=== PATIENT | male | born 1950 | race Caucasian/White ===

== ENCOUNTER 2019-03-13 00:13 | Emergency (ER) | payer MEDICARE, OTHER ==
[~2019-03-13] VITALS: Ht 172.7 cm; Wt 74.4 kg
--- NOTE | 2019-03-13 00:24 | NUR ---
PT BIBRA. C/O "MAY HAVE ACCIDENTALLY TAKEN TOO MUCH TRAZODONE. +SYNCOPE, BP 90/61" -SOB AOX4. VSS. NAD NOTED. PT REPORTS SLIGHT DIZZINESS. RESP EVEN AND UNLABORED. PT ON MONITOR IN BED 3. WILL CONTINUE TO MONITOR.
--- NOTE | 2019-03-13 00:50 | NUR ---
TECH AT BEDSIDE FOR EKG
--- NOTE | 2019-03-13 00:53 | NUR ---
PHLEB AT BEDSIDE FOR BLOOD DRAW
[2019-03-13] MEDS ORDERED: IV NS 0.9% 1,000 ML BAG IV ONE (01:00)
[2019-03-13 01:01] LABS: BASOPHILS # (AUTO) 0.1 /CMM (0.0-0.2); BASOPHILS % (AUTO) 1.1 % (0.0-2.0); HEMATOCRIT 41 % (39-51); HEMOGLOBIN 13.8 g/dL (13.5-17.5); LYMPHOCYTES # (AUTO) 0.8 /CMM (0.8-4.8); MEAN CORPUSCULAR HGB CONC 34 g/dl (31.0-36.0); MEAN CORPUSCULAR VOLUME 101 fL (80-96); MONOCYTES # (AUTO) 0.4 /CMM (0.1-1.30); MONOCYTES % (AUTO) 4.9 % (2.0-12.0); NEUTROPHILS # (AUTO) 6.3 /CMM (1.8-8.9); PLATELET COUNT (AUTO) 234 /CMM (150-450); RED BLOOD CELL COUNT(AUTO) 4.07 MIL/uL (4.5-6.0); WHITE BLOOD COUNT (AUTO) 7.7 K/uL (4.3-11.0)
--- NOTE | 2019-03-13 01:09 | NUR ---
RADIOLOGY AT BEDSIDE FOR XRAY
[2019-03-13 01:15] LABS: CALCIUM, SERUM 8.4 mg/dL (8.5-10.1); CREATININE 0.9 mg/dL (0.6-1.3); POTASSIUM 3.9 mmol/L (3.5-5.1)
--- NOTE | 2019-03-13 01:23 | NUR ---
Patient is resting comfortably in bed. Easily aroused. VSS. Family at bedside.
--- NOTE | 2019-03-13 03:35 | NUR ---
Patient discharged to home in stable condition. Written and verbal after care instructions given. Patient verbalizes understanding of instruction. IV removed. Catheter intact and site benign. Pressure and 4x4 applied to site. No bleeding noted. PT ambulatory with a steady gait.
[2019-03-13 03:36] VITALS: BP 126/64
== END 2019-03-13 03:36 | disposition home or self-care (01) ==
LOC: ER 00:18
DX: S01.81XA Laceration without foreign body of other part of head, initial encounter (principal); R55 Syncope and collapse; F41.9 Anxiety disorder, unspecified; G47.00 Insomnia, unspecified; Z88.0 Allergy status to penicillin; X58.XXXA Exposure to other specified factors, initial encounter; Y93.89 Activity, other specified; Y92.89 Other specified places as the place of occurrence of the external cause; Y99.8 Other external cause status
CPT/HCPCS: 12011; 36415; 71045; 80048; 80305; 84484 ×2; 85025; 93005 ×2; 96360; 99284; J7030

== ENCOUNTER 2019-08-18 12:31 | Inpatient (IN) | payer MEDICARE, OTHER ==
[~2019-08-18] VITALS: Ht 177.8 cm; Wt 81.6 kg
--- NOTE | 2019-08-18 12:38 | NUR ---
CAME IN FOR SUDDEN ONSET CHEST PAIN 30 MINS AGO, TO ER BED 1, HOOKED TO SORTING LIVESTOCK WORKER, NORMAL SINUS RHYTHM ON MONITOR, CHANGED TO HOSP GOWN, WARM BLANKET PROVIDED. PATIENT AAO x 4, BREATHING EVEN AND UNLABORED. AWAITING MD FORTE.
--- NOTE | 2019-08-18 12:39 | NUR ---
PATIENT DENIES CHEST PAIN UPON ARRIVAL IN ED.
--- NOTE | 2019-08-18 12:55 | NUR ---
DR RESTREPO AT BEDSIDE
[2019-08-18 12:56] LABS: BASOPHILS % (AUTO) 0.2 % (0.0-2.0); EOSINOPHILS % (AUTO) 1.2 % (0.0-6.0); HEMATOCRIT 45 % (39-51); HEMOGLOBIN 15.5 g/dL (13.5-17.5); LYMPHOCYTES # (AUTO) 1.1 /CMM (0.8-4.8); MEAN CORPUSCULAR HGB CONC 34 g/dl (31.0-36.0); MEAN CORPUSCULAR VOLUME 98 fL (80-96); MONOCYTES # (AUTO) 0.3 /CMM (0.1-1.30); MONOCYTES % (AUTO) 5.8 % (2.0-12.0); NEUTROPHILS # (AUTO) 3.2 /CMM (1.8-8.9); NEUTROPHILS % (AUTO) 68.8 % (43.0-81.0); PLATELET COUNT (AUTO) 229 /CMM (150-450); WHITE BLOOD COUNT (AUTO) 4.6 K/uL (4.3-11.0)
[2019-08-18 13:10] LABS: BILIRUBIN,DIRECT 0.2 mg/dL (0.0-0.2); CALCIUM, SERUM 9.1 mg/dL (8.5-10.1); TOTAL PROTEIN, SERUM 7.2 g/dL (6.4-8.2)
[2019-08-18] MEDS ORDERED: SUMA100T16 PO (13:34)
[2019-08-18] MEDS ORDERED: ALPR1TAB7 PO (13:34)
[2019-08-18] MEDS ORDERED: Z GUARD REMEDY 2 OZ OINT TP PRN (14:00)
[2019-08-18] MEDS ORDERED: MAG HYDROX/AL HYDROX/SIMETH 30 ML UDC PO PRN (14:00)
[2019-08-18] MEDS ORDERED: HYDROCODONE/APAP 5/325MG 1 EACH TABLET PO PRN (14:00)
[2019-08-18] MEDS ORDERED: ACETAMINOPHEN 325 MG TABLET PO PRN (14:00)
[2019-08-18] MEDS ORDERED: MAGNESIUM HYDROXIDE 30 ML UDC PO PRN (14:00)
[2019-08-18] MEDS ORDERED: ONDANSETRON HCL/PF 4 MG/2 ML VIAL IVP PRN (14:00)
[2019-08-18] MEDS ORDERED: NITROGLYCERIN 0.4 MG/TAB BOTTLE SL PRN (14:00)
[2019-08-18] MEDS ORDERED: MORPHINE SULFATE INJ 2 MG/ML DISP.SYRIN IV PRN (14:00)
--- NOTE | 2019-08-18 14:21 | NUR ---
REPORT GIVEN TO RUFINO LOPEZ OF TELE UNIT
--- NOTE | 2019-08-18 15:00 | NUR ---
MS RN NOTE ADMITTED PATIENT TO UNIT, ALERT AND ORIENTED X4. DENIES ANY C/O CHEST PAIN AT THIS TIME. DENIES ANY OTHER C/O PAIN NOR DISCOMFORT AT THIS TIME. ON TELEMONITORING SR: 65. ORIENTED PATIENT TO ROOM, UNIT AND CALL LIGHT. ALL BELONGINGS ACCOUNTED FOR. BED IN LOWEST POSITION, LOCKED. BED ALARM ON. CALL LIGHT WITHIN REACH.
[2019-08-18] MEDS: IV NS 0.9% 1,000 ML IV PRN (18:06)
--- NOTE | 2019-08-18 18:58 | NUR ---
MS RN NOTE PATIENT RESTING COMFORTABLY IN BED. DENIES ANY C/O CHEST PAIN AT THIS TIME. DENIES ANY OTHER C/O PAIN NOR DISCOMFORT AT THIS TIME. LEFT AC # 18 INTACT AND PATENT INFUSING NS AT 75ML/HR HARRISON WELL. ALL BELONGINGS ACCOUNTED FOR. BED IN LOWEST POSITION, LOCKED. BED ALARM ON. CALL LIGHT WITHIN REACH. IN NO APPARENT DISTRESS.
--- NOTE | 2019-08-18 19:00 | NUR ---
sight effects specialist opening notes Received Pt from morning nurse. Pt is sitting in bed comfortably watching TV. Pt is alert and orientedX4. Respiration is normal in room air. No SOB. No S/S of distress noted. Pt denies any pain or discomfort at this time. Tele monitor showed SR Hr at 70 bpm. LAC# 18 is clean, intact, patent and infusing well NS @ 75 ml/hr. Safety precautions is maintained. Bed at low position, brakes locked, side railsupX2 and call light is within reach. Will continue to monitor.
[2019-08-18 19:36] VITALS: BP 132/81
[2019-08-18 20:00] VITALS: BP 132/81
--- NOTE | 2019-08-18 20:11 | NUR ---
occupational safety and health manager notes Received a phone call from thomas Hamm regarding Pt's troponin is 1.296.
--- NOTE | 2019-08-18 20:19 | NUR ---
appeals writer notes Called Dr. Arnold regarding Pt's lab troponin 1.296. Awaiting for orders.
--- NOTE | 2019-08-18 20:27 | NUR ---
special forces senior sergeant notes Received a phone call from Dr. Arnold. Informed and notified MD regarding Pt's troponin 1.296. VS is stable. Tele monitor showed SR. Informed MD Pt has aspirin 81 mg ordered. MD ordered to follow up with another troponin Q 6hr. Order carried out.
[2019-08-18] MEDS ORDERED: TEMAZEPAM 15 MG CAPSULE PO PRN (22:00)
[2019-08-18 23:52] VITALS: BP 123/74
[2019-08-19] VITALS (40 sets, daily range): BP systolic 120–159; BP diastolic 48–112
--- NOTE | 2019-08-19 00:15 | NUR ---
industrial illuminating engineer notes Received critical lab from lab regarding Pt's troponin 1 is 1.509. Informed and notified Dr. Arnold regarding critical lab troponin 1. Informed and notified Pt denies any pain or discomfort at this time, Pt's VS is stable and Tele monitor showed SR 75bpm. Informed and notified MD Pt has aspirin 81 mg scheduled tomorrow. MD ordered lovenox 40 mg and aspirin 81 mg now and F/U with Troponin 1 in 6 hrs. Orders carried out. Will continue to monitor.
[2019-08-19] MEDS ORDERED: ENOXAPARIN SODIUM 40 MG/0.4 ML DISP.SYRIN SQ SCH ×2 (00:46→09:00)
[2019-08-19] MEDS ORDERED: ASPIRIN 81 MG TAB.CHEW PO ONE (01:00)
[2019-08-19] MEDS: IV NS 0.9% 1,000 ML IV PRN ×2 (04:48→21:29)
--- NOTE | 2019-08-19 06:50 | NUR ---
assembly detailer closing notes Pt is resting in bed comfortably. Pt is alert and orientedX4. Respiration is normal in room air. No SOB. No S/S of distress noted. Pt denies any pain or discomfort at this time. VS is stable. Afebrile. Tele monitor showed SR Hr at 75 bpm. LAC# 18 is clean, intact, patent and infusing well NS @ 75 ml/hr. Kept Pt clean, dry and comfortable. Safety precautions is maintained. Bed at low position, brakes locked, side railsupX2 and call light is within reach. Will endorse to morning nurse for KODAK.
[2019-08-19 07:18] LABS: BASOPHILS % (AUTO) 0.2 % (0.0-2.0); EOSINOPHILS % (AUTO) 1.1 % (0.0-6.0); HEMATOCRIT 42 % (39-51); HEMOGLOBIN 14.1 g/dL (13.5-17.5); LYMPHOCYTES # (AUTO) 1.2 /CMM (0.8-4.8); LYMPHOCYTES % (AUTO) 24.6 % (20.0-44.0); MEAN CORPUSCULAR HGB CONC 34 g/dl (31.0-36.0); MEAN CORPUSCULAR VOLUME 99 fL (80-96); MONOCYTES # (AUTO) 0.4 /CMM (0.1-1.30); MONOCYTES % (AUTO) 7.3 % (2.0-12.0); NEUTROPHILS # (AUTO) 3.4 /CMM (1.8-8.9); NEUTROPHILS % (AUTO) 66.8 % (43.0-81.0); PLATELET COUNT (AUTO) 205 /CMM (150-450); RED BLOOD CELL COUNT(AUTO) 4.22 MIL/uL (4.5-6.0); WHITE BLOOD COUNT (AUTO) 5.1 K/uL (4.3-11.0)
[2019-08-19 07:31] LABS: CALCIUM, SERUM 8.6 mg/dL (8.5-10.1); CREATININE 0.8 mg/dL (0.6-1.3); MAGNESIUM 2.5 mg/dL (1.8-2.4); POTASSIUM 3.8 mmol/L (3.5-5.1)
[2019-08-19 07:43] LABS: THYROID STIMULATING HORMONE 2.376 uIU/mL (0.358-3.74)
[2019-08-19] MEDS ORDERED: HEPARIN SODIUM, PORCINE 5000 UNITS/1 ML VIAL IV ONE (08:30)
[2019-08-19] MEDS ORDERED: IODIXANOL 150 ML IV ONE ×2 (08:58→13:46)
[2019-08-19] MEDS: ATORVASTATIN 40 MG TABLET PO SCH (09:00)
[2019-08-19] MEDS: ASPIRIN 81 MG TAB.CHEW PO SCH (09:00)
[2019-08-19] MEDS ORDERED: ENOXAPARIN SODIUM 80 MG/0.8 ML DISP.SYRIN SQ SCH (09:00)
[2019-08-19] MEDS: CARVEDILOL 3.125 MG TABLET PO SCH ×2 (09:00→21:13)
[2019-08-19] MEDS ORDERED: VERAPAMIL HCL IV 5 MG/2 ML VIAL ONE (11:27)
[2019-08-19] MEDS ORDERED: MIDAZOLAM HCL 2 MG/2ML VIAL ONE (11:27)
[2019-08-19] MEDS ORDERED: HEPARIN SODIUM, PORCINE 1,000 UNIT/ML VIAL ONE (11:28)
[2019-08-19] MEDS ORDERED: NITROGLYCERIN ICAR 1,000 MCG/10 ML VIAL ICAR ONE (11:28)
[2019-08-19] MEDS ORDERED: FENTANYL PF 100MCG/2ML AMPUL ONE (11:32)
--- NOTE | 2019-08-19 11:40 | NUR ---
METAL FURNITURE REPAIRER NOTE: PATIENT OFF UNIT. PATIENT WAS TAKEN TO THE HEAVY DUTY PRESS OPERATOR AT 1140.
[2019-08-19] MEDS ORDERED: IV SET PRIMARY PUMP SET 1 EA INFUS.SET MC ONE (11:46)
[2019-08-19] MEDS ORDERED: IV NS 0.9% 1,000 ML ONE (11:46)
[2019-08-19] MEDS ORDERED: LIDOCAINE HCL/PF 1% 30 ML SDV ONE (12:21)
[2019-08-19] MEDS ORDERED: IODIXANOL 320MG/ML 50 ML IV ONE (13:21)
[2019-08-19] MEDS ORDERED: TICAGRELOR 90 MG TABLET PO ONE (13:21)
[2019-08-19] MEDS ORDERED: BIVALIRUDIN 250 MG/VIAL IV ONE (13:21)
[2019-08-19] MEDS ORDERED: ASPIRIN 325 MG TABLET ONE (13:21)
--- NOTE | 2019-08-19 14:32 | NUR ---
SITE ACQUISITION SPECIALIST NOTE: PATIENT TRANSFERRED TO ICU AFTER CATHLAB. GAVE REPORT TO GEORGINA.
--- NOTE | 2019-08-19 14:55 | NUR ---
ICU/RN PT IS TRANSFERRED FROM AWNING MAKER S/P ANGIOGRAM.WITH 1 STENT PLACEMENT -OM. AWAKE,ALERT.NO PAIN REPORTED AT THIS TIME.RIGHT RADIAL TR BEND.RIGHT WRIST IS SWOLLEN WITH HEMATOMA.LEFT AC PERIFERAL IV WITH 100 ML/HR FOR THE NEXT 5 HRS.AFEBRILE. SINUS RHYTHM ON MONITOR. CONTINUE MONITORING.
[2019-08-19] MEDS ORDERED: LORAZEPAM 1 MG TABLET PO PRN (15:00)
[2019-08-19] MEDS ORDERED: SUMATRIPTAN SUCCINATE 100 MG TABLET PO PRN (15:00)
[2019-08-19] MEDS ORDERED: IV NS 0.9% 500 ML IV ONE (15:30)
--- NOTE | 2019-08-19 15:57 | NUR ---
CHICKEN PICKER OPENING NOTE: Received patient from night nurse. Patient sitting on his bed comfortably, awake and alert. Patient denies pain or discomfort. Breathing is unlabored and equal bilaterally. No SOB. Monitoring patient; SR 65bpm. Safety precaution is maintained. Bed is at the lowest position, brakes are locked, 2 side rails are up, and call light is within reach. Will continue to monitor and maintain care plan.
--- NOTE | 2019-08-19 18:30 | NUR ---
ICU/RN TR BAND REMOVED.NO S/S OF BLEEDING NOTED.ALL PULSES ARE GOOD.NORTON WRIST IS SWOLLEN AND BLUE. PT EATS HIS DINNER. USE URINAL 350 ML .V/S STABLE,AFEBRILE NO PAIN REPORTED AT THIS TIME.
--- NOTE | 2019-08-19 19:00 | NUR ---
RN NOTES RECEIVED BEDSIDE REPORT FROM JOHN ERICKSON. PATIENT RESTING IN BED, A/OX4, ABLE TO MAKE NEEDS KNOWN VERBALLY. DENIES ANY PAIN AT THE MOMENT. PT STATUS POST PCI OF OSTIAL OM. ON TELE MONITOR NSR WITH HR 90'S. RIGHT WRIST NOTED WITH REDNESS AND SWELLING. ABLE TO MOVE HANDS AND PULSES WNL. ON ROOM AIR NO SOB OR RESPIRATORY DISTRESS NOTED, SATURATING 99%. AMBULATORY PER REPORT. SAFETY MEASURES MAINTAINED; CALL LIGHT WITHIN REACH, SIDE RAILS UP X2, BED LOCKED AND IN LOWEST POSITION. WILL CONT TO MONITOR CLOSELY.
[2019-08-19] MEDS: TICAGRELOR 90 MG TABLET PO SCH (23:02)
[2019-08-20] VITALS (37 sets, daily range): BP systolic 106–154; BP diastolic 46–107
--- NOTE | 2019-08-20 | NUR ---
RN NOTES FREQUENT ROUNDING DONE. PATIENT SLEEPING IN BED. NO ACUTE DISTRESS NOTED. VITAL SIGNS WNL. WILL CONT TO MONITOR.
--- NOTE | 2019-08-20 01:50 | NUR ---
RN NOTES PATIENT C/O DIFFICULTY SLEEPING AND STATED "I CAN'T SLEEP, I USUALLY TAKE XANAX AT HOME TO HELP ME SLEEP" CHECKED PATIENT MEDICATION ORDERS; RESTRORIL 15MG NOTED. INFORMED PATIENT AND STATED OKAY TO TAKE RESTORIL INSTEAD OF XANAX.
[2019-08-20 05:28] LABS: EOSINOPHILS % (AUTO) 0.5 % (0.0-6.0); HEMATOCRIT 40 % (39-51); LYMPHOCYTES % (AUTO) 14.3 % (20.0-44.0); MEAN CORPUSCULAR HGB CONC 35 g/dl (31.0-36.0); MEAN CORPUSCULAR VOLUME 98 fL (80-96); MONOCYTES # (AUTO) 0.5 /CMM (0.1-1.30); NEUTROPHILS # (AUTO) 5.4 /CMM (1.8-8.9); NEUTROPHILS % (AUTO) 78.2 % (43.0-81.0); PLATELET COUNT (AUTO) 218 /CMM (150-450); RED BLOOD CELL COUNT(AUTO) 4.14 MIL/uL (4.5-6.0); WHITE BLOOD COUNT (AUTO) 6.9 K/uL (4.3-11.0)
[2019-08-20 05:51] LABS: ALBUMIN 3.3 g/dL (3.4-5.0); BILIRUBIN,TOTAL 0.8 mg/dL (0.2-1.0); CALCIUM, SERUM 8.4 mg/dL (8.5-10.1); CREATININE 0.7 mg/dL (0.6-1.3); MAGNESIUM 2.2 mg/dL (1.8-2.4); PHOSPHORUS 3.1 mg/dL (2.5-4.9); POTASSIUM 3.2 mmol/L (3.5-5.1); TOTAL PROTEIN, SERUM 6.2 g/dL (6.4-8.2)
--- NOTE | 2019-08-20 06:07 | NUR ---
RN NOTES CRITICAL LAB TROPONIN 1.658 CALLED BY SUDEEP FRANKLIN TROP 1.695; CHARGE NURSE MADE AWARE AND STATED NO NEED TO CONTACT MD. WILL ENDORSE TO AM RN.
--- NOTE | 2019-08-20 06:53 | NUR ---
RN NOTES PATIENT RESTING IN BED, A/OX4, ABLE TO MAKE NEEDS KNOWN. NO ACUTE CHANGES THROUGHOUT SHIFT. DENIES ANY PAIN. ON TELE MONITOR NSR WITH HR 60'S. ON ROOM AIR, NO SOB OR RESPIRATORY DISTRESS NOTED, SATURATING 100%. KEPT PT CLEAN, DRY, AND COMFORTABLE. ALL MD ORDERS ATTENDED, ALL NEEDS ANTICIPATED AND MET. SAFETY MEASURES MAINTAINED; CALL LIGHT WITHIN REACH, SIDE RAILS UP X2, BED LOCKED AND IN LOWEST POSITION. WILL CONT TO MONITOR PATIENT. WILL ENDORSE TO AM RN FOR KODAK. @7211 DR. MAYA MADE AWARE OF PATIENT'S POTASSIUM 3.2, ASKED IF HE WANTS TO ORDER REPLACEMENT, STATED HE WILL TAKE CARE OF IT. WILL ENDORSE TO AM RN.
--- NOTE | 2019-08-20 07:50 | NUR ---
TANK TENDER NOTES PATIENT IN BED SITTING AWAKE, A/O X4 GREEK SPEAKER, NSR 70`S. NO ISOLATION. NO SOB OR DISCOMFORT NOTED AT THIS TIME. PATIENT REQUESTED TO BE OFF MONITOR SO HE CAN BE CHANGES AND USE THE BATHROOM. ABLE TO CALL TO THE BATHROOM INDEPENDENTLY WITH NO SOB AND DISCOMFORT. NOTED RIGHT WRIST HEMATOMA. IV LINE PATIENT AND ON NS 0.9 % 75ML/HR. VITALS WITHIN NORMAL LIMITS. CALL LIGHT WITHIN REACH BED AT THE LOWEST POSITION LOCKED. WILL CONTINUE TO MONITOR THE PATIENT.
[2019-08-20] MEDS: CARVEDILOL 3.125 MG TABLET PO SCH ×2 (08:36→21:03)
[2019-08-20] MEDS: ASPIRIN 81 MG TAB.CHEW PO SCH (08:36)
[2019-08-20] MEDS: ATORVASTATIN 40 MG TABLET PO SCH (08:36)
[2019-08-20] MEDS: TICAGRELOR 90 MG TABLET PO SCH ×2 (08:36→17:05)
[2019-08-20] MEDS: POTASSIUM CHLORIDE 20 MEQ TAB.PRT.SR PO SCH ×3 (09:45→12:06)
--- NOTE | 2019-08-20 13:15 | NUR ---
SUPERVISOR FINAL NOTES (TRANSFER TO 3W BED 310) PATIENT TRANSFERRED TO 3W ROOM 310 BY 2 RNS. NO SOB OR DISCOMFORT NOTED ON PATIENT DURING THE TRANSFER. 3 DOSES OF KDUR ADMINISTRATED. ALL BELONGINGS RETURNED TO THE PATIENT AND THE FORM SIGNED. IV SITE PATENT AND FLUSHED WITH NS WELL. REPORT GIVEN TO THE RN AT BED SIDE.
--- NOTE | 2019-08-20 13:45 | NUR ---
DAIRY HUSBANDRY WORKER NOTES RECEIVED PT FROM ICU, TRANSFER VIA BED VIA ACLS TRANSPORT. PT AWAKE, A/OX4, AMBULATORY. TOLERATING RA, WITH NO ACUTE RESPIRATORY DISTRESS NOTED. PT DENIES ANY PAIN OR DISCOMFORT AT THIS TIME. PT CONCERNED ABOUT GOING HOME TODAY AT 4PM PER DR. MAYA AND WITH POST-[id number] WITH HIM OUTPATIENT. PT HOOKED TO TELEMONITORING, SR WITH HR 77. PIV TO LAC G18, FLUSHED WITH NS, INTACT AND OPERATIONAL. PT KEPT COMFORTABLE IN BED. ORIENTED TO STAFFS, ROOM, SOREN TIME, ETC. PT'S BED IN LOWEST, LOCKED POSITION WITH SRX2. CALL LIGHT KEPT WITHIN REACH. WILL CONTINUE PLAN OF CARE.
--- NOTE | 2019-08-20 16:38 | NUR ---
CYBER SECURITY CONSULTANT NOTES TROPONIN OF 1.906, HOSPITALIST/NN MADE AWARE. HOLD FOR DISCHARGE TODAY. REPEAT TROPONIN IN AM, PT MADE AWARE. ALSO, SPOKE TO JAQUELIN/ELIDIA REGARDING [place], TO F/U WITH DISCHARGE. WILL CONTINUE PLAN OF CARE.
--- NOTE | 2019-08-20 18:38 | NUR ---
PAINTER MIRROR NOTES PT REMAINS IN BED. PT AWAKE, A/OX4, AMBULATORY. TOLERATING RA, WITH NO ACUTE RESPIRATORY DISTRESS NOTED. PT DENIES ANY PAIN OR DISCOMFORT AT THIS TIME. PT ON TELEMONITORING, SR WITH HR 79. PIV TO LAC G18, FLUSHED WITH NS, INTACT AND OPERATIONAL. PT KEPT COMFORTABLE IN BED. ALL NEEDS AND CARE ATTENDED. PT'S BED IN LOWEST, LOCKED POSITION WITH SRX2. CALL LIGHT KEPT WITHIN REACH. WILL ENDORSE TO INCOMING NIGHT NURSE FOR KODAK.
--- NOTE | 2019-08-20 19:35 | NUR ---
MS RN NOTES RECEIVED ON BED,SITTING POSITION,BREATHING REGULAR,NOT IN ANY FORM OF DISTRESS.SALINE LOCK LEFT AC INTACT AND PATENT.NOTED BRUISING ON RIGHT LOWER ARM FROM PREVIOUS PROCEDURE.DENIES PAIN AT THE MOMENT.CALL LIGHT IN REACH,NEEDS ANTICIPATED.
[2019-08-21] VITALS: BP 123/84
[2019-08-21 00:15] VITALS: BP 123/84
--- NOTE | 2019-08-21 06:32 | NUR ---
SUPERVISOR BOATBUILDERS WOOD NOTES SLEPT WELL AT NIGHT.RIGHT ARM ELEVATED ON PILLOWS,NO COMPLAINTS OF PAIN.POSSIBLE D/C TODAY IF TROPONIN TRENDING DOWN.IN NO ACUTE DISTRESS.CALL LIGHT IN REACH,NEEDS ATTENDED.
[2019-08-21 08:00] VITALS: BP 113/68
[2019-08-21] MEDS: ASPIRIN 81 MG TAB.CHEW PO SCH (09:18)
[2019-08-21] MEDS: TICAGRELOR 90 MG TABLET PO SCH ×2 (09:19→16:46)
[2019-08-21] MEDS: ATORVASTATIN 40 MG TABLET PO SCH (09:20)
[2019-08-21] MEDS: CARVEDILOL 3.125 MG TABLET PO SCH (09:24)
--- NOTE | 2019-08-21 13:25 | NUR ---
MS RN NOTES PATIENT DISCHARGE PAPERS COMPLETED, DISCHARGE INSTRUCTIONS PROVIDED. PATIENT VERBALIZED UNDERSTANDING. PRESCRIPTIONS PROVIDED. DISCHARGE PROTOCOL FOLLOWED. PATIENT DRESSED AND READY TO BE DISCHARGED. PERIPHERAL IV REMOVED, ID BAND REMOVED WAITING FOR ELECTRO OPTICAL ENGINEER.
--- NOTE | 2019-08-21 14:00 | NUR ---
OCCUPATIONAL HEALTH AND SAFETY OFFICER NOTES RETURNED FROM LUNCH, CHARGE NURSE REPORTS PATIENT WAS FOUND ON THE FLOOR. PATIENT DOES NOT RECALL HOW HE ENDED UP ON THE FLOOR. HE ONLY RECALLS WAKING UP ON THE FLOOR. PATIENT APPEARS PALE AND CLAMMY. PATIENT STATES HE FEELS FINE NOW. VITAL SIGNS CHECKED BP SUPINE IS 105/51 PULSE 60. BLOOD SUGAR IS 112. PATIENT SAT UP AND CHECKED BP SITTING WHICH WAS 81/60 PULSE 60, PATIENT STOOD UP WHILE CHECKING BP PATIENT FELT WEAK SAT PATIENT DOWN AND PATIENT HAD A SYNCOPAL EPISODE. PATIENT PLACED IN BED SUPINE POSITION. PATIENT NOTED SLOWLY WAKING UP. PERIPHERAL IV STARTED. CALLED JEAN GARCIA WAITING FOR ORDERS.
[2019-08-21] MEDS ORDERED: IV NS 0.9% 500 ML BAG IV ONE (14:30)
--- NOTE | 2019-08-21 14:30 | NUR ---
ATM MANAGER NOTES ORDERS OBTAINED OF NS 500ML BOLUS. STAT EKG AND TRANSFER PATIENT TO TELE STATUS. ORDERS NOTED AND CARRIED OUT.
[2019-08-21] MEDS: IV NS 0.9% 1,000 ML IV PRN (15:47)
[2019-08-21 15:53] LABS: BASOPHILS % (AUTO) 0.1 % (0.0-2.0); EOSINOPHILS % (AUTO) 0.9 % (0.0-6.0); HEMATOCRIT 40 % (39-51); HEMOGLOBIN 13.4 g/dL (13.5-17.5); LYMPHOCYTES # (AUTO) 0.9 /CMM (0.8-4.8); LYMPHOCYTES % (AUTO) 12.4 % (20.0-44.0); MEAN CORPUSCULAR HGB CONC 34 g/dl (31.0-36.0); MEAN CORPUSCULAR VOLUME 98 fL (80-96); MONOCYTES # (AUTO) 0.4 /CMM (0.1-1.30); MONOCYTES % (AUTO) 6.3 % (2.0-12.0); NEUTROPHILS # (AUTO) 5.7 /CMM (1.8-8.9); NEUTROPHILS % (AUTO) 80.3 % (43.0-81.0); PLATELET COUNT (AUTO) 200 /CMM (150-450); RED BLOOD CELL COUNT(AUTO) 4.04 MIL/uL (4.5-6.0); WHITE BLOOD COUNT (AUTO) 7.1 K/uL (4.3-11.0)
[2019-08-21 16:00] VITALS: BP 108/75
[2019-08-21 16:02] LABS: CALCIUM, SERUM 7.7 mg/dL (8.5-10.1); POTASSIUM 3.9 mmol/L (3.5-5.1)
--- NOTE | 2019-08-21 18:32 | NUR ---
ADOBE FLEX DEVELOPER NOTES PATIENT IN BED RESTING NO SOB OR ACUTE DISTRESS. NO EPISODES OF DIZZINESS OR WEAKNESS. ALL DUE MEDICATIONS ADMINISTERED. ALL NEEDS MET. PATIENT ON BED REST. ON IV FLUIDS. WILL ENDORSE CARE TO PM SHIFT.
[2019-08-21 20:00] VITALS: BP 120/89
[2019-08-22] VITALS: BP 116/62
[2019-08-22 04:00] VITALS: BP 108/55
[2019-08-22] MEDS: IV NS 0.9% 1,000 ML IV PRN (06:55)
--- NOTE | 2019-08-22 07:30 | NUR ---
Tele/RN Opening note Received patient AO x 4, able to responds all stimuli. Denies dizziness or lightheadedness this morning. Skin is warm mot touch, clean/dry, intact IV site. Respiratory even and unlabored with room air. Kept bed in lock with low position and elevate HOB for secure airway. Call light within reach, will continue to monitor for safety.
[2019-08-22 07:36] LABS: BASOPHILS % (AUTO) 0.1 % (0.0-2.0); EOSINOPHILS % (AUTO) 0.8 % (0.0-6.0); HEMATOCRIT 41 % (39-51); LYMPHOCYTES # (AUTO) 0.9 /CMM (0.8-4.8); LYMPHOCYTES % (AUTO) 16.3 % (20.0-44.0); MEAN CORPUSCULAR HGB CONC 34 g/dl (31.0-36.0); MEAN CORPUSCULAR VOLUME 97 fL (80-96); MONOCYTES # (AUTO) 0.3 /CMM (0.1-1.30); MONOCYTES % (AUTO) 6.4 % (2.0-12.0); NEUTROPHILS # (AUTO) 4.1 /CMM (1.8-8.9); NEUTROPHILS % (AUTO) 76.4 % (43.0-81.0); PLATELET COUNT (AUTO) 233 /CMM (150-450); RED BLOOD CELL COUNT(AUTO) 4.24 MIL/uL (4.5-6.0); WHITE BLOOD COUNT (AUTO) 5.4 K/uL (4.3-11.0)
[2019-08-22 07:41] LABS: CREATININE 0.7 mg/dL (0.6-1.3); POTASSIUM 3.6 mmol/L (3.5-5.1)
[2019-08-22] MEDS: TICAGRELOR 90 MG TABLET PO SCH (08:42)
[2019-08-22] MEDS: ATORVASTATIN 40 MG TABLET PO SCH (08:42)
[2019-08-22] MEDS: ASPIRIN 81 MG TAB.CHEW PO SCH (08:42)
[2019-08-22 09:03] VITALS: BP 108/55
[2019-08-22 12:00] VITALS: BP 136/97
--- NOTE | 2019-08-22 15:10 | NUR ---
Given discharge instruction include f/u Dr. Sheldon in 1week, prescription medications, continue home meds, side effect, and Pt verbally understand. Troponin test was done before pt discharge and noticed decreased troponin level. Patient denies pain or lightheadedness, in stable condition. v/s:bp-136/97,p-72, r-18, t-98.7, O2sat 98%.
== END 2019-08-22 15:00 | disposition home or self-care (01) | DRG 247 ==
LOC: ER 12:36 → TELE2 14:08 → ICU 08-19 14:45 → TELE 08-20 13:35 → MED 08-21 12:00 → TELE 08-22 03:28
PROVIDERS: ADMIT Nurse Practitioner Acute Care; ATTEND Nurse Practitioner Acute Care
PROC: 4A023N7 Measurement of Cardiac Sampling and Pressure, Left Heart, Percutaneous Approach (ICD-10-PCS; principal; 2019-08-19)
PROC: 027034Z Dilation of Coronary Artery, One Artery with Drug-eluting Intraluminal Device, Percutaneous Approach (ICD-10-PCS; 2019-08-19)
PROC: B211YZZ Fluoroscopy of Multiple Coronary Arteries using Other Contrast (ICD-10-PCS; 2019-08-19)
DX: I21.4 Non-ST elevation (NSTEMI) myocardial infarction (principal); G43.909 Migraine, unspecified, not intractable, without status migrainosus; G47.00 Insomnia, unspecified; F41.9 Anxiety disorder, unspecified; I24.9 Acute ischemic heart disease, unspecified; R79.89 Other specified abnormal findings of blood chemistry; I25.10 Atherosclerotic heart disease of native coronary artery without angina pectoris; I25.2 Old myocardial infarction
CPT/HCPCS: 36415; 71045-TC; 80048-TC; 80053-TC; 80061-TC; 80076-TC; 83735-TC; 84100-TC; 84443-TC; 84484-TC; 85025-TC; 87081-TC; 92980; 92982; 93307-TC; C1725; C1769; C1887; G0378; G0500; J1644; J1650; J2250; J3010; J3490; J7030; J7040; Q9967

== ENCOUNTER 2022-12-03 13:13 | Emergency (ER) | payer MEDICARE, OTHER ==
[~2022-12-03] VITALS: Ht 175.3 cm; Wt 83.9 kg
[~2022-12-03 13:13] MED LIST: ALPR1TAB7 PO; SUMA100T16 PO
[2022-12-03] MEDS ORDERED: IV NS 0.9% 1,000 ML BAG IV ONE (14:30)
[2022-12-03] MEDS ORDERED: MYRBETRIQ PO (14:55)
[2022-12-03] MEDS ORDERED: DONE10TA44 PO (14:55)
[2022-12-03 15:23] LABS: BASOPHILS % (AUTO) 0.1 % (0.0-2.0); EOSINOPHILS % (AUTO) 0.3 % (0.0-6.0); HEMATOCRIT 40 % (39-51); LYMPHOCYTES # (AUTO) 0.7 K/uL (0.8-4.8); LYMPHOCYTES % (AUTO) 8.6 % (20.0-44.0); MEAN CORPUSCULAR HEMOGLOBIN 30 PG (26.0-33.0); MEAN CORPUSCULAR HGB CONC 32 g/dl (31.0-36.0); MEAN CORPUSCULAR VOLUME 93 fL (80-96); MONOCYTES # (AUTO) 0.4 K/uL (0.1-1.30); MONOCYTES % (AUTO) 4.6 % (2.0-12.0); NEUTROPHILS # (AUTO) 6.6 K/uL (1.8-8.9); NEUTROPHILS % (AUTO) 86.4 % (43.0-81.0); PLATELET COUNT (AUTO) 224 K/uL (150-450); RED BLOOD CELL COUNT(AUTO) 4.34 MIL/uL (4.5-6.0); RED CELL DISTRIBUTION WIDTH 16.6 % (11.5-15.0); WHITE BLOOD COUNT (AUTO) 7.7 K/uL (4.3-11.0)
[2022-12-03 16:17] LABS: ALANINE AMINOTRANSFERASE 29 U/L (12-78); ALBUMIN 3.3 g/dL (3.4-5.0); ALKALINE PHOSPHATASE 106 U/L (46-116); ASPARTATE AMINOTRANSFERASE 16 U/L (15-37); BILIRUBIN,DIRECT 0.1 mg/dL (0.0-0.2); BILIRUBIN,TOTAL 0.4 mg/dL (0.2-1.0); CALCIUM, SERUM 8.9 mg/dL (8.5-10.1); CARBON DIOXIDE 23 mmol/L (21-32); CHLORIDE 107 mmol/L (98-107); CREATININE 1.1 mg/dL (0.6-1.3); GLUCOSE 110 mg/dL (74-106); POTASSIUM 4.4 mmol/L (3.5-5.1); SODIUM SERUM 138 mmol/L (136-145); TOTAL PROTEIN, SERUM 6.9 g/dL (6.4-8.2); UREA NITROGEN, BLOOD 19 mg/dL (7-18)
[2022-12-03 16:34] LABS: APPEARANCE,URINE CLEAR (CLEAR); BILIRUBIN,URINE NEGATIVE (NEGATIVE); BLOOD, URINE NEGATIVE Ery/uL (NEGATIVE); COLOR,URINE YELLOW (YELLOW); KETONES,URINE NEGATIVE (NEGATIVE); LEUKOCYTE ESTERASE ,URINE NEGATIVE (NEGATIVE); NITRITE, URINE NEGATIVE (NEGATIVE); PROTEIN,URINE NEGATIVE (NEGATIVE); UGLUCOSE NEGATIVE (NEGATIVE); UROBILINOGEN,URINE 0.2 EU/dL (0.2)
[2022-12-03 19:20] VITALS: BP 112/58; TEMP 98; O2SAT 100
== END 2022-12-03 19:21 | disposition home or self-care (01) ==
LOC: ER 13:13
DX: R55 Syncope and collapse (principal); F41.9 Anxiety disorder, unspecified; Z88.0 Allergy status to penicillin
CPT/HCPCS: 99285; 96360; 71045; 93005; 85025; 80048; 80076; 81003; 36415; 84484; 83880; J7030

== ENCOUNTER 2024-01-14 00:32 | Emergency (ER) | payer MEDICARE, OTHER ==
[~2024-01-14] VITALS: Ht 177.8 cm; Wt 85.3 kg
[~2024-01-14 00:32] MED LIST changes: -ALPR1TAB7 PO; +DONE10TA44 PO; +MYRBETRIQ PO; -SUMA100T16 PO
[2024-01-14] MEDS ORDERED: DOXY-326 PO (01:29)
[2024-01-14] MEDS ORDERED: DOXYCYCLINE HYCLATE (100 MG) 100 MG TABLET ONE (01:31)
[2024-01-14] MEDS ORDERED: TDAP [DIPH/PERTUSSIS/TET] 0.5 ML VIAL IM ONE (01:32)
[2024-01-14] MEDS: TDAP [DIPH/PERTUSSIS/TET] 0.5 ML VIAL IM ONE (01:33)
[2024-01-14] MEDS: DOXYCYCLINE HYCLATE (100 MG) 100 MG TABLET PO ONE (01:33)
[2024-01-14 02:02] VITALS: BP 132/88; TEMP 98.2; O2SAT 99
== END 2024-01-14 02:03 | disposition home or self-care (01) ==
LOC: ER 00:36
DX: S90.872A Other superficial bite of left foot, initial encounter (principal); L03.116 Cellulitis of left lower limb; F41.9 Anxiety disorder, unspecified; Z79.899 Other long term (current) drug therapy; Z88.0 Allergy status to penicillin; Z86.69 Personal history of other diseases of the nervous system and sense organs; Z95.5 Presence of coronary angioplasty implant and graft; W55.01XA Bitten by cat, initial encounter; Y93.89 Activity, other specified; Y92.098 Other place in other non-institutional residence as the place of occurrence of the external cause; Y99.8 Other external cause status
CPT/HCPCS: 90715

== ENCOUNTER 2024-10-20 11:51 | Emergency (ER) | payer OTHER, MEDICAID ==
[~2024-10-20] VITALS: Ht 177.8 cm; Wt 85.3 kg
[~2024-10-20 11:51] MED LIST changes: +DOXY-326 PO
[2024-10-20 12:57] LABS: PLATELET COUNT (AUTO) 248 K/uL (150-450); RED BLOOD CELL COUNT(AUTO) 4.10 MIL/uL (4.5-6.0); RED CELL DISTRIBUTION WIDTH 16.8 % (11.5-15.0); WHITE BLOOD COUNT (AUTO) 4.4 K/uL (4.3-11.0)
[2024-10-20 13:01] LABS: CALCIUM, SERUM 8.8 mg/dL (8.5-10.1); CREATININE 1.2 mg/dL (0.6-1.3); SODIUM SERUM 139.0 mmol/L (136-145); UREA NITROGEN, BLOOD 18.0 mg/dL (7-18)
[2024-10-20 13:12] LABS: INR 0.97 (0.91-1.10)
[2024-10-20 13:14] LABS: NT-PRO BNP 53.0 pg/mL (0-125)
[2024-10-20 15:37] VITALS: BP 119/89; TEMP 98.5; O2SAT 97
== END 2024-10-20 15:38 | disposition home or self-care (01) ==
LOC: ER 12:00
DX: M79.642 Pain in left hand (principal); R22.32 Localized swelling, mass and lump, left upper limb; F03.90 Unspecified dementia, unspecified severity, without behavioral disturbance, psychotic disturbance, mood disturbance, and anxiety; F41.9 Anxiety disorder, unspecified; Z88.0 Allergy status to penicillin
CPT/HCPCS: 36415; 73060-TC; 73090-TC; 73130-TC; 80048-TC; 83880; 85025-TC; 85730-TC; 93971-TC